=== PATIENT | male | born 1970 | race African-American/Black ===

== ENCOUNTER → 2022-09-25 | Outpatient (CLI) | payer OTHER ==
--- NOTE | 2022-09-27 07:17 | MR ---
EXAMINATION TYPE: MR shoulder LT wo con DATE OF EXAM: 09/25/2022 COMPARISON: Outside left shoulder x-rays September 10, 2022 HISTORY: Lt shoulder pain with difficulty raising arm overhead for one year, hx of surgery 2017 TECHNIQUE: Multiplanar, multisequence imaging of the left shoulder is performed without contrast. FINDINGS: Rotator Cuff: Distal supraspinatus and infraspinatus tendons are intact. Rotator cuff muscle bulk is preserved. Acromioclavicular Joint: Moderate narrowing and capsular hypertrophy. Loss of the underlying fat plan e. Glenohumeral Joint: Tiny joint effusion. No significant spurring. Labrum: Increased signal superior labrum suggesting degenerative tearing. Biceps Tendon: The long head of biceps is in normal location within bicipital groove. Bone marrow signal: No focal abnormal marrow signal is appreciated. Other: No additional significant abnormality is appreciated. IMPRESSION: Superior labral tear may be degenerative in etiology. No rotator cuff tear. AC joint arth ropathy with suggestion of underlying impingement. Correlate clinically.
== END | disposition home or self-care (01) ==
LOC: RADMRIMAIN 14:46
PROVIDERS: ATTEND Orthopaedic Surgery
DX: M19.012 Primary osteoarthritis, left shoulder (principal)